=== PATIENT | female | born 1980 | race Caucasian/White ===

== ENCOUNTER 2016-07-13 19:55 | Emergency (ER) | payer OTHER ==
[2016-07-13 16:29] LABS: BASOPHILS 0.2 %; BASOPHILS ABSOLUTE 0.03 10/3/uL (0.0-0.16); EOSINOPHILS ABSOLUTE 0.25 10/3/uL (0.0-0.53); HEMATOCRIT 45.6 % (36.0-48.0); HEMOGLOBIN 15.7 g/dL (12.0-16.0); IMMATURE GRANULOCYTES 0.5 %; LYMPHOCYTES 15.8 %; LYMPHOCYTES ABSOLUTE 2.02 10/3/uL (0.67-4.30); MEAN CORPUS HGB CONC 34.4 g/dL (32.0-36.0); MEAN CORPUSCULAR HEMOGLOB 31.3 pg (26.0-34.0); MEAN PLATELET VOLUME 9.5 fL (9.2-13.0); MONOCYTES 7.3 %; MONOCYTES ABSOLUTE 0.93 10/3/uL (0.21-1.20); NEUTROPHILS 74.2 %; NEUTROPHILS ABSOLUTE 9.46 10/3/uL (2.02-8.40); PLATELET COUNT 389 10/3/uL (150-400); RBC DISTRIBUTION WIDTH 13.8 % (12.0-16.0); RED CELL COUNT 5.02 10/6/uL (4.0-5.6)
[2016-07-13 16:30] LABS: ER CBC TAT 0 Hrs 11 Mins; MANUAL DIFF NO %; MEAN CORPUSCULAR VOLUME 90.8 fL (80-100); WHITE BLOOD CELLS 12.8 10/3/uL (4.5-10.5)
[2016-07-13 16:31] LABS: IMMATURE GRANULOCYTES ABSOLUTE 0.06 10/3/uL (0.0-0.11)
[2016-07-13 16:32] LABS: PARTIAL THROMBO TIME 25.5 SEC (22.5-37.2); PROTIME (NOT ORD) 13.4 SEC (12.0-14.5)
[2016-07-13 16:44] LABS: BUN (BLOOD UREA NITROGEN) 7 MG/DL (6-23); CALCIUM, SERUM 8.8 MG/DL (8.5-10.4); CHEST PAIN PROFILE TAT 0 Hrs 25 Mins; CHLORIDE, SERUM 101 MMOL/L (96-112); CREATININE 0.71 MG/DL (0.55-1.02); GFR AFRICAN AMERICAN 125 ML/MIN (>=60); GFR NON AFRICAN AMERICAN 108 ML/MIN (>=60); POTASSIUM, SERUM 3.6 MMOL/L (3.5-5.3); SODIUM, SERUM 141 MMOL/L (135-148); TROPONIN I <0.02 NG/ML (<0.05)
[2016-07-13 16:46] LABS: CO2 (CARBON DIOXIDE) 30 MMOL/L (24-34); GLUCOSE, SERUM 113 MG/DL (60-99)
[2016-07-13 16:49] LABS: PLATELET ESTIMATE ADQ (ADEQUATE)
[2016-07-13 16:50] LABS: OVALOCYTES 1+ (3-10/OIF) (0-2/OIF); SPHEROCYTES FEW (3-10/OIF)
== END 2016-07-13 20:32 | disposition home or self-care (01) ==
LOC: ER 19:55
PROVIDERS: Emergency Medicine
DX: R00.2 Palpitations (principal); F41.9 Anxiety disorder, unspecified; I10 Essential (primary) hypertension; Z88.8 Allergy status to other drugs, medicaments and biological substances; Z88.5 Allergy status to narcotic agent
CPT/HCPCS: 71020; 80048; 83735; 84484; 85025; 85610; 85730; 93005; 93225; 99285